=== PATIENT | male | born 1975 | race Caucasian/White ===

== ENCOUNTER 2017-05-02 12:44 | Emergency (ER) | payer BC ==
[2017-05-02 13:17] VITALS: BP 122/81; PULSE 67; RESP 14; TEMP 97.7
--- NOTE | 2017-05-02 13:36 | ED ---
General Adult HPI - General Chief complaint: Extremity Injury, Lower Stated complaint: Right Ankle Injury Time Seen by Provider: 05/02/17 13:20 Source: patient, RN notes reviewed Mode of arrival: ambulatory Limitations: no limitations - History of Present Illness Initial comments: 41-year-old male presents to the emergency department with a chief complaint of right ankle pain. Patient states yesterday he was doing yard work and he stepped into a hole and rolled his ankle. Patient states stenting, and he noticed bruising and swelling to the ankle today and pain with movement of the ankle so he was concerned. Patient states he is able to ambulate on the ankle just hurts to do range of motion. Patient denies any right knee pain. Patient has any fall patient states the pain is moderate. Patient states that he also has had a chronic cough for about a month now. He has been treated for bronchitis. He states he does not have any phlegm production he does not feel short of breath. He states he does have ALLERGIES and he thought maybe was that is wondering if there is anything else that could be wrong with him regarding to the cough. Patient states is not currently having any other symptoms.Patient denies any recent fever, chills, shortness of breath, chest pain, back pain, abdominal pain, nausea vomiting, numbness or tingling, dysuria or hematuria, constipation or diarrhea, headaches or visual changes, or any other current symptoms. - Related Data Home Medications Medication Instructions Recorded Confirmed No Known Home Medications [No 01/04/16 01/04/16 Known Home Medications] Allergies Allergy/AdvReac Type Severity Reaction Status Date / Time sulfamethoxazole Allergy Unknown Verified 05/02/17 13:17 [From Bactrim] trimethoprim [From Bactrim] Allergy Unknown Verified 05/02/17 13:17 Penicillins AdvReac Unknown STATES Verified 05/02/17 13:17 PENICILLINS DO NOT WORK FOR HIM. Review of Systems ROS Statement: Those systems with pertinent positive or pertinent negative responses have been documented in the HPI. ROS Other: All systems not noted in ROS Statement are negative. 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 History of Any Multi-Drug Resistant Organisms: None Reported Past Surgical History: Orthopedic Surgery Additional Past Surgical History / Comment(s): ARTHROSCOPY RIGHT KNEE, SINUS SURGERY X3. Past Anesthesia/Blood Transfusion Reactions: No Reported Reaction Past Psychological History: No Psychological Hx Reported Smoking Status: Light tobacco smoker Past Alcohol Use History: Occasional Past Drug Use History: None Reported - Past Family History Father Family Medical History: Cancer Additional Family Medical History / Comment(s): BRAIN & LUNG CA General Exam Limitations: no limitations General appearance: alert, in no apparent distress ENT exam: Present: normal exam, mucous membranes moist Neck exam: Present: normal inspection. Absent: tenderness, meningismus, lymphadenopathy Respiratory exam: Present: normal lung sounds bilaterally. Absent: respiratory distress, wheezes, rales, rhonchi, stridor Cardiovascular Exam: Present: regular rate, normal rhythm, normal heart sounds. Absent: systolic murmur, diastolic murmur, rubs, gallop, clicks Right Knee exam: Present: normal inspection, full ROM. Absent: tenderness, swelling Lower Leg exam: Present: normal inspection, full ROM. Absent: tenderness, swelling Ankle exam: Present: full ROM, tenderness (Medial and lateral malleolus), swelling (Diffusely), ecchymosis (Bilateral aspect of ankle). Absent: abrasion , laceration, erythema Foot/Toe exam: Present: normal inspection, full ROM, ecchymosis (Along the sides of the foot). Absent: tenderness, swelling Neurovascular tendon exam: Present: no vascular compromise Neurological exam: Present: alert, oriented X3 Psychiatric exam: Present: normal affect, normal mood Skin exam: Present: warm, dry, intact, normal color. Absent: rash Course Vital Signs 05/02/17 13:14 Temperature 97.7 F Pulse Rate 67 Respiratory 14 Rate Blood Pressure 122/81 O2 Sat by Pulse 97 Oximetry Procedures - Orthopedic Splinting/Casting Injury #1 Side: right Lower Extremity Injury Location: ankle Lower Extremity Immobilizer: Matt wrap Medical Decision Making - Medical Decision Making 41-year-old male presents emergency Department chief complaint of right ankle pain and chronic cough. Lung exam is normal as well as vitals. Chest x-ray does not show any acute process. Patient also went under an x-ray of the right ankle. This time x-rays reviewed and did not show any acute processes. We discussed patient most likely is right ankle sprain. We discussed care follow- up and return parameters all questions. Patient stated he understood and is very plan. This time he will be discharged home. - Radiology Data Radiology results: report reviewed, image reviewed Disposition Clinical Impression: Cough, Seasonal allergies, Right ankle sprain Disposition: HOME SELF-CARE Condition: Stable Instructions: Ankle Sprain (ED) Additional Instructions: Please use medication as discussed. Please follow up with family doctor if symptoms have not improved over the next two days. Please return to the emergency room if your symptoms increase or worsen or for any other concerns. Referrals: Papito Eid MD [Primary Care Provider] - 1-2 days Time of Disposition: 13:56
--- NOTE | 2017-05-02 13:51 | XR ---
EXAMINATION TYPE: XR chest 2V DATE OF EXAM: 05/02/2017 COMPARISON: 09/05/2010 HISTORY: Cough and recent bronchitis TECHNIQUE: Frontal and lateral views of the chest are obtained. FINDINGS: There is no focal air space opacity, pleural effusion, or pneumothorax seen. The cardiac silhouette size is within normal limits. The osseous structures are intact. IMPRESSION: No acute cardiopulmonary process.
--- NOTE | 2017-05-02 13:53 | XR ---
EXAMINATION TYPE: XR ankle complete RT DATE OF EXAM: 05/02/2017 CLINICAL HISTORY: Right ankle pain after a fall TECHNIQUE: Frontal, lateral and oblique images of the right ankle are obtained. COMPARISON: None. FINDINGS: There is no acute fracture/dislocation evident in the right ankle. The ankle mortise appe ars within normal limits. There is a small tibiotalar joint effusion and mild soft tissue swelling ov er the lateral malleolus. The overlying soft tissue appears unremarkable. IMPRESSION: There is no acute fracture or dislocation in the right ankle. Small tibiotalar joint eff usion and mild soft tissue swelling over the lateral malleolus.
== END 2017-05-02 14:00 | disposition home or self-care (01) ==
LOC: EC 12:44
DX: S93.401A Sprain of unspecified ligament of right ankle, initial encounter (principal); J30.2 Other seasonal allergic rhinitis; R05 Cough; F17.200 Nicotine dependence, unspecified, uncomplicated; Z88.0 Allergy status to penicillin; Z88.2 Allergy status to sulfonamides; X50.1XXA Overexertion from prolonged static or awkward postures, initial encounter; Y92.009 Unspecified place in unspecified non-institutional (private) residence as the place of occurrence of the external cause
CPT/HCPCS: 71020; 99283

== ENCOUNTER 2018-11-05 12:14 | Emergency (ER) | payer BC ==
[2018-11-05 12:22] VITALS: TEMP 98.8
[2018-11-05] MEDS ORDERED: SODIUM CHLORIDE 0.9% 500 ML 500 ML IV ONE (12:59)
--- NOTE | 2018-11-05 13:09 | ED ---
General Adult HPI - General Chief complaint: Syncope Stated complaint: SYNCOPY Time Seen by Provider: 11/05/18 12:20 Source: patient, RN notes reviewed Mode of arrival: wheelchair Limitations: no limitations - History of Present Illness Initial comments: This is a 43-year-old male who presents emergency department after having had a near-syncopal episode. Patient states she got up from a couch Quickly and then stretched and yawned really hard and he became very lightheaded and slowly went to the ground. Patient states there was no injury while going to the ground. Patient states he was on the ground for about a minute and then he was back to his baseline. Patient states he has no symptoms currently. Patient denies any numbness or weakness. Patient denies any headache. Patient denies any chest pain difficult breathing shortness of breath. Patient denies any abdominal pain. Patient denies any nausea vomiting diarrhea recently. Patient denies any dysuria hematuria urinary frequency. - Related Data Home Medications Medication Instructions Recorded Confirmed Cetirizine HCl [Zyrtec] 10 mg PO HS 11/05/18 11/05/18 Fluticasone/Salmeterol [Advair 1 puff INHALATION RT-DAILY PRN 11/05/18 11/05/18 500-50 Diskus] diphenhydrAMINE [Benadryl] 50 mg PO DAILY 11/05/18 11/05/18 Allergies Allergy/AdvReac Type Severity Reaction Status Date / Time sulfamethoxazole Allergy Unknown Verified 11/05/18 13:08 [From Bactrim] trimethoprim [From Bactrim] Allergy Unknown Verified 11/05/18 13:08 Penicillins AdvReac Unknown STATES Verified 11/05/18 13:08 PENICILLINS DO NOT WORK FOR HIM. Review of Systems ROS Statement: Those systems with pertinent positive or pertinent negative responses have been documented in the HPI. ROS Other: All systems not noted in ROS Statement are negative. 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 History of Any Multi-Drug Resistant Organisms: None Reported Past Surgical History: Orthopedic Surgery Additional Past Surgical History / Comment(s): ARTHROSCOPY RIGHT KNEE, SINUS SURGERY X3. Past Anesthesia/Blood Transfusion Reactions: No Reported Reaction Past Psychological History: No Psychological Hx Reported Smoking Status: Light tobacco smoker Past Alcohol Use History: Occasional Past Drug Use History: None Reported - Past Family History Father Family Medical History: Cancer Additional Family Medical History / Comment(s): BRAIN & LUNG CA General Exam - General Exam Comments Initial Comments: GENERAL: Patient is well-developed and well-nourished. Patient is nontoxic and well- hydrated and is in mild distress. ENT: Neck is soft and supple. No significant lymphadenopathy is noted. Oropharynx is clear. Moist mucous membranes. Neck has full range of motion without eliciting any pain. EYES: The sclera were anicteric and conjunctiva were pink and moist. Extraocular movements were intact and pupils were equal round and reactive to light. Eyelids were unremarkable. PULMONARY: Unlabored respirations. Good breath sounds bilaterally. No audible rales rhonchi or wheezing was noted. CARDIOVASCULAR: There is a regular rate and rhythm without any murmurs gallops or rubs. ABDOMEN: Soft and nontender with normal bowel sounds. SKIN: Skin is clear with no lesions or rashes and otherwise unremarkable. NEUROLOGIC: Patient is alert and oriented x3. Cranial nerves II through XII are grossly intact. Motor and sensory are also intact. Normal speech, volume and content. Symmetrical smile. MUSCULOSKELETAL: Normal extremities with adequate strength and full range of motion. No lower extremity swelling or edema. No calf tenderness. LYMPHATICS: No significant lymphadenopathy is noted PSYCHIATRIC: Normal psychiatric evaluation. Limitations: no limitations Course Vital Signs 11/05/18 11/05/18 12:19 14:02 Temperature 98.8 F Pulse Rate 93 Pulse Rate [ 99 Right Sitting Pulse Oximetery ] Pulse Rate [ 104 H Right Standing Pulse Oximetery ] Pulse Rate [ 90 Right Supine Pulse Oximetery ] Respiratory 18 Rate Blood Pressure 137/82 Blood Pressure 133/95 [Right Arm Sitting] Blood Pressure 130/93 [Right Arm Standing] Blood Pressure 124/82 [Right Arm Supine] O2 Sat by Pulse 99 Oximetry Medical Decision Making - Medical Decision Making EKG shows a normal sinus rhythm at 84 bpm DE interval is on a 64 QRS is 72 QT interval 336 QTC is 397. Patient's EKG shows no ST segment elevation or depression or T wave abnormalities are noted. Patient orthostatics were normal. Patient's chest x-ray is normal. I spoke with the patient about him having a vasovagal near syncopal episode. He indicated to me that the feeling he got today was the same feeling is gotten in the past when he was jumped off a couch too quickly and the only difference was he stretched really hard and yawned and that seemed to make him more dizzy today. Patient states he has had no symptoms since the event resolved after 1 minute. - Lab Data Result diagrams: 11/05/18 13:45 11/05/18 13:45 Lab Results 11/05/18 11/05/18 11/05/18 Range/Units 13:45 13:45 13:45 WBC 11.0 H (3.8-10.6) k/uL RBC 5.09 (4.30-5.90) m/uL Hgb 16.6 (13.0-17.5) gm/dL Hct 49.8 (39.0-53.0) % MCV 97.9 (80.0-100.0) fL MCH 32.7 (25.0-35.0) pg MCHC 33.4 (31.0-37.0) g/dL RDW 12.0 (11.5-15.5) % Plt Count 230 (150-450) k/uL Neutrophils % 77 % Lymphocytes % 17 % Monocytes % 5 % Eosinophils % 1 % Basophils % 0 % Neutrophils # 8.5 H (1.3-7.7) k/uL Lymphocytes # 1.8 (1.0-4.8) k/uL Monocytes # 0.5 (0-1.0) k/uL Eosinophils # 0.1 (0-0.7) k/uL Basophils # 0.0 (0-0.2) k/uL PT (9.0-12.0) sec INR (<1.2) APTT (22.0-30.0) sec Sodium 140 (137-145) mmol/L Potassium 4.6 (3.5-5.1) mmol/L Chloride 107 (98-107) mmol/L Carbon Dioxide 21 L (22-30) mmol/L Anion Gap 12 mmol/L BUN 23 H (9-20) mg/dL Creatinine 0.91 (0.66-1.25) mg/dL Est GFR (CKD-EPI)AfAm >90 (>60 ml/min/1.73 sqM) Est GFR (CKD-EPI)NonAf >90 (>60 ml/min/1.73 sqM) Glucose 77 (74-99) mg/dL Calcium 10.1 (8.4-10.2) mg/dL Magnesium 2.1 (1.6-2.3) mg/dL Total Bilirubin 1.0 (0.2-1.3) mg/dL AST 32 (17-59) U/L ALT 23 (21-72) U/L Alkaline Phosphatase 79 (38-126) U/L Total Creatine Kinase 122 (55-170) U/L CK-MB (CK-2) 1.6 (0.0-2.4) ng/mL CK-MB (CK-2) Rel Index 1.3 Troponin I <0.012 (0.000-0.034) ng/mL Total Protein 8.2 (6.3-8.2) g/dL Albumin 5.0 (3.5-5.0) g/dL 11/05/18 Range/Units 13:45 WBC (3.8-10.6) k/uL RBC (4.30-5.90) m/uL Hgb (13.0-17.5) gm/dL Hct (39.0-53.0) % MCV (80.0-100.0) fL MCH (25.0-35.0) pg MCHC (31.0-37.0) g/dL RDW (11.5-15.5) % Plt Count (150-450) k/uL Neutrophils % % Lymphocytes % % Monocytes % % Eosinophils % % Basophils % % Neutrophils # (1.3-7.7) k/uL Lymphocytes # (1.0-4.8) k/uL Monocytes # (0-1.0) k/uL Eosinophils # (0-0.7) k/uL Basophils # (0-0.2) k/uL PT 10.3 (9.0-12.0) sec INR 1.0 (<1.2) APTT 26.8 (22.0-30.0) sec Sodium (137-145) mmol/L Potassium (3.5-5.1) mmol/L Chloride (98-107) mmol/L Carbon Dioxide (22-30) mmol/L Anion Gap mmol/L BUN (9-20) mg/dL Creatinine (0.66-1.25) mg/dL Est GFR (CKD-EPI)AfAm (>60 ml/min/1.73 sqM) Est GFR (CKD-EPI)NonAf (>60 ml/min/1.73 sqM) Glucose (74-99) mg/dL Calcium (8.4-10.2) mg/dL Magnesium (1.6-2.3) mg/dL Total Bilirubin (0.2-1.3) mg/dL AST (17-59) U/L ALT (21-72) U/L Alkaline Phosphatase (38-126) U/L Total Creatine Kinase (55-170) U/L CK-MB (CK-2) (0.0-2.4) ng/mL CK-MB (CK-2) Rel Index Troponin I (0.000-0.034) ng/mL Total Protein (6.3-8.2) g/dL Albumin (3.5-5.0) g/dL Disposition Clinical Impression: Vasovagal near syncope Disposition: HOME SELF-CARE Condition: Good Instructions (If sedation given, give patient instructions): Hypotension (ED), Near Syncope (ED) Is patient prescribed a controlled substance at d/c from ED?: No Referrals: Papito Eid MD [Primary Care Provider] - 1-2 days Time of Disposition: 14:50
[2018-11-05 14:02] LABS: Basophils % (A) 0 %; Eosinophils # (A) 0.1 k/uL (0-0.7); Eosinophils % (A) 1 %; HCT 49.8 % (39.0-53.0); HGB 16.6 gm/dL (13.0-17.5); Lymphocytes # (A) 1.8 k/uL (1.0-4.8); Lymphocytes % (A) 17 %; MCH 32.7 pg (25.0-35.0); MCHC 33.4 g/dL (31.0-37.0); MCV 97.9 fL (80.0-100.0); Monocytes # (A) 0.5 k/uL (0-1.0); Monocytes % (A) 5 %; Neutrophils # (A) 8.5 k/uL (1.3-7.7); Neutrophils % (A) 77 %; Platelet Count 230 k/uL (150-450); RBC 5.09 m/uL (4.30-5.90)
--- NOTE | 2018-11-05 14:04 | XR ---
EXAMINATION TYPE: XR chest 2V DATE OF EXAM: 11/05/2018 COMPARISON: 05/02/2018 INDICATION: Chest pain, syncope TECHNIQUE: Frontal and lateral views of the chest are obtained. FINDINGS: The heart size is normal. The pulmonary vasculature is normal. The lungs are clear. IMPRESSION: 1. No acute pulmonary process.
[2018-11-05 14:12] LABS: Partial Thromboplastin Time 26.8 sec (22.0-30.0); Prothrombin Time 10.3 sec (9.0-12.0)
[2018-11-05 14:17] LABS: ALT 23 U/L (21-72); AST 32 U/L (17-59); Alkaline Phosphatase 79 U/L (38-126); Anion Gap 12 mmol/L; Blood Urea Nitrogen 23 mg/dL (9-20); Calcium 10.1 mg/dL (8.4-10.2); Carbon Dioxide 21 mmol/L (22-30); Chloride 107 mmol/L (98-107); Glucose 77 mg/dL (74-99); Magnesium 2.1 mg/dL (1.6-2.3); Potassium 4.6 mmol/L (3.5-5.1); Sodium 140 mmol/L (137-145); Total Protein 8.2 g/dL (6.3-8.2)
[2018-11-05 14:22] LABS: Creatine Kinase 122 U/L (55-170)
[2018-11-05 14:35] LABS: Creatine Kinase MB 1.6 ng/mL (0.0-2.4); Troponin I <0.012 ng/mL (0.000-0.034)
[2018-11-05 15:05] VITALS: BP 126/79; PULSE 92; RESP 16
== END 2018-11-05 15:10 | disposition home or self-care (01) ==
LOC: EC 12:14
DX: R55 Syncope and collapse (principal); R42 Dizziness and giddiness; J45.909 Unspecified asthma, uncomplicated; F17.200 Nicotine dependence, unspecified, uncomplicated; Z79.899 Other long term (current) drug therapy; Z88.2 Allergy status to sulfonamides; Z88.0 Allergy status to penicillin
CPT/HCPCS: 36415; 71046; 80053; 82550; 82553; 83735; 84484; 85025; 85610; 85730; 93005; 99284

== ENCOUNTER 2019-08-21 14:00 | Emergency (ER) | payer BC ==
[2019-08-21 14:31] VITALS: TEMP 98.5
[2019-08-21] MEDS ORDERED: IPRATROPIUM-ALBUTEROL 3 ML NEB INHALATION STA (14:40)
[2019-08-21] MEDS ORDERED: methylPREDNISolone SOD SUCCI 125 MG/2 ML VIAL IV STA (14:40)
[2019-08-21] MEDS ORDERED: SODIUM CHLORIDE 0.9% 500 ML 500 ML IV STA (14:40)
--- NOTE | 2019-08-21 14:49 | ED ---
Abdominal Pain HPI - General Chief Complaint: Abdominal Pain Stated Complaint: R Side pain Time Seen by Provider: 08/21/19 14:33 Source: patient, RN notes reviewed Mode of arrival: ambulatory Limitations: no limitations - History of Present Illness Initial Comments: 44-year-old male presents emergency department tingling right sided rib pain. Patient states that he is coughing so at this morning that he felt a pop in his ribs states she's had severe pain is right-sided. It is worse with movement. He does feel slightly short of breath. He states that his been fighting bronchitis. Patient has been using his [employer] machine at home. Patient rep orts no fevers or chills no some/chest pain or left-sided chest pain. Patient has no complaints of abdominal pain including nausea vomiting diarrhea constipation no dysuria no hematuria. - Related Data Home Medications Medication Instructions Recorded Confirmed Fluticasone/Salmeterol [Advair 1 puff INHALATION RT-DAILY PRN 11/05/18 08/21/19 500-50 Diskus] diphenhydrAMINE [Benadryl] 50 mg PO DAILY 11/05/18 08/21/19 Magnesium 200 mg PO DAILY 08/21/19 08/21/19 Multivitamins, Thera [Multivitamin 1 tab PO DAILY 08/21/19 08/21/19 (formulary)] Previous Rx's Medication Instructions Recorded Azithromycin [Zithromax Z-pack] 0 mg PO DIRECTED #1 pack 08/21/19 Ibuprofen [Motrin] 600 mg PO Q8HR PRN #30 tab 08/21/19 predniSONE 50 mg PO DAILY #5 tab 08/21/19 Allergies Allergy/AdvReac Type Severity Reaction Status Date / Time sulfamethoxazole Allergy Unknown Verified 08/21/19 15:32 [From Bactrim] trimethoprim [From Bactrim] Allergy Unknown Verified 08/21/19 15:32 Penicillins AdvReac Unknown STATES Verified 08/21/19 15:32 [employer]ENICILLINS DO NOT WORK FOR HIM. Review of Systems ROS Statement: Those systems with pertinent positive or pertinent negative responses have been documented in the HPI. ROS Other: All systems not noted in ROS Statement are negative. 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 History of Any Multi-Drug Resistant Organisms: None Reported Past Surgical History: Orthopedic Surgery Additional Past Surgical History / Comment(s): ARTHROSCOPY RIGHT KNEE, SINUS SURGERY X3. Past Anesthesia/Blood Transfusion Reactions: No Reported Reaction Past Psychological History: No Psychological Hx Reported Smoking Status: Light tobacco smoker Past Alcohol Use History: Occasional Past Drug Use History: None Reported - Past Family History Father Family Medical History: Cancer Additional Family Medical History / Comment(s): BRAIN & LUNG CA General Exam Limitations: no limitations General appearance: alert, in no apparent distress Head exam: Present: atraumatic, normocephalic, normal inspection Eye exam: Present: normal appearance, PERRL, EOMI. Absent: scleral icterus, conjunctival injection, periorbital swelling Neck exam: Present: normal inspection, full ROM. Absent: tenderness, meningismus, lymphadenopathy Respiratory exam: Present: wheezes, rhonchi, chest wall tenderness (Moderately tender right-sided). Absent: normal lung sounds bilaterally, respiratory distress, rales, stridor Cardiovascular Exam: Present: regular rate, normal rhythm, normal heart sounds. Absent: systolic murmur, diastolic murmur, rubs, gallop, clicks GI/Abdominal exam: Present: soft, normal bowel sounds. Absent: distended, tenderness, guarding, rebound, rigid Back exam: Absent: CVA tenderness (R), CVA tenderness (L) Neurological exam: Present: alert, oriented X3 Skin exam: Present: warm, dry, intact, normal color. Absent: rash Course Vital Signs 08/21/19 08/21/19 08/21/19 14:29 15:15 15:34 Temperature 98.5 F Pulse Rate 99 98 98 Respiratory 20 Rate Blood Pressure 112/72 O2 Sat by Pulse 96 Oximetry 08/21/19 16:06 Temperature Pulse Rate 98 Respiratory 18 Rate Blood Pressure 128/79 O2 Sat by Pulse 99 Oximetry Medical Decision Making - Medical Decision Making Chest x-ray shows evidence of acute bronchitis, otherwise no pneumothorax or rib fracture. Patient's lab work urinalysis is unremarkable. I do feel this is related to costochondritis, muscular skeletal strain. Return parameters were discussed. - Lab Data Result diagrams: 08/21/19 15:05 08/21/19 15:05 Lab Results 08/21/19 08/21/19 08/21/19 Range/Units 15:05 15:05 15:10 WBC 7.1 (3.8-10.6) k/uL RBC 4.41 (4.30-5.90) m/uL Hgb 14.9 (13.0-17.5) gm/dL Hct 43.8 (39.0-53.0) % MCV 99.3 (80.0-100.0) fL MCH 33.7 (25.0-35.0) pg MCHC 34.0 (31.0-37.0) g/dL RDW 11.9 (11.5-15.5) % Plt Count 220 (150-450) k/uL Neutrophils % 80 % Lymphocytes % 10 % Monocytes % 5 % Eosinophils % 3 % Basophils % 2 % Neutrophils # 5.7 (1.3-7.7) k/uL Lymphocytes # 0.7 L (1.0-4.8) k/uL Monocytes # 0.4 (0-1.0) k/uL Eosinophils # 0.2 (0-0.7) k/uL Basophils # 0.1 (0-0.2) k/uL Sodium 137 (137-145) mmol/L Potassium 4.0 (3.5-5.1) mmol/L Chloride 105 (98-107) mmol/L Carbon Dioxide 24 (22-30) mmol/L Anion Gap 8 mmol/L BUN 18 (9-20) mg/dL Creatinine 1.05 (0.66-1.25) mg/dL Est GFR (CKD-EPI)AfAm >90 (>60 ml/min/1.73 sqM) Est GFR (CKD-EPI)NonAf 86 (>60 ml/min/1.73 sqM) Glucose 104 H (74-99) mg/dL Calcium 8.9 (8.4-10.2) mg/dL Total Bilirubin 0.9 (0.2-1.3) mg/dL AST 29 (17-59) U/L ALT 23 (21-72) U/L Alkaline Phosphatase 65 (38-126) U/L Total Protein 6.6 (6.3-8.2) g/dL Albumin 4.1 (3.5-5.0) g/dL Amylase 59 (30-110) U/L Lipase 151 (23-300) U/L Urine Color Yellow Urine Appearance Clear (Clear) Urine pH 5.5 (5.0-8.0) Ur Specific Melber 1.031 (1.001-1.035) Urine Protein Negative (Negative) Urine Glucose (UA) Negative (Negative) Urine Ketones Negative (Negative) Urine Blood Negative (Negative) Urine Nitrite Negative (Negative) Urine Bilirubin Negative (Negative) Urine Urobilinogen <2.0 (<2.0) mg/dL Ur Leukocyte Esterase Negative (Negative) Disposition Clinical Impression: Acute bronchitis, Rib pain on right side, Muscle strain of anterior chest wall Disposition: HOME SELF-CARE Condition: Stable Instructions (If sedation given, give patient instructions): Acute Bronchitis (ED) Additional Instructions: Please return to the Emergency Department if symptoms worsen or any other concerns. Prescriptions: Ibuprofen [Motrin] 600 mg PO Q8HR PRN #30 tab PRN Reason: Pain predniSONE 50 mg PO DAILY #5 tab Azithromycin [Zithromax Z-pack] 0 mg PO DIRECTED #1 pack Is patient prescribed a controlled substance at d/c from ED?: No Referrals: Papito Eid MD [Primary Care Provider] - 1-2 days Time of Disposition: 16:29
[2019-08-21 15:18] VITALS: PULSE 98
[2019-08-21 15:23] LABS: ALT 23 U/L (21-72); AST 29 U/L (17-59); African American GFR (CKD) >90 (>60 ml/min/1.73 sqM); Albumin 4.1 g/dL (3.5-5.0); Alkaline Phosphatase 65 U/L (38-126); Amylase 59 U/L (30-110); Anion Gap 8 mmol/L; Blood Urea Nitrogen 18 mg/dL (9-20); Calcium 8.9 mg/dL (8.4-10.2); Carbon Dioxide 24 mmol/L (22-30); Chloride 105 mmol/L (98-107); Glucose 104 mg/dL (74-99); Non-African American GFR(CKD) 86 (>60 ml/min/1.73 sqM); Sodium 137 mmol/L (137-145); Total Bilirubin 0.9 mg/dL (0.2-1.3); Total Protein 6.6 g/dL (6.3-8.2)
[2019-08-21 15:30] LABS: Basophils # (A) 0.1 k/uL (0-0.2); Basophils % (A) 2 %; Eosinophils # (A) 0.2 k/uL (0-0.7); Eosinophils % (A) 3 %; HCT 43.8 % (39.0-53.0); HGB 14.9 gm/dL (13.0-17.5); Lymphocytes # (A) 0.7 k/uL (1.0-4.8); Lymphocytes % (A) 10 %; MCH 33.7 pg (25.0-35.0); MCV 99.3 fL (80.0-100.0); Mean Platelet Volume 5.9; Monocytes # (A) 0.4 k/uL (0-1.0); Monocytes % (A) 5 %; Neutrophils # (A) 5.7 k/uL (1.3-7.7); Neutrophils % (A) 80 %; Platelet Count 220 k/uL (150-450); RBC 4.41 m/uL (4.30-5.90); RDW 11.9 % (11.5-15.5); WBC 7.1 k/uL (3.8-10.6)
[2019-08-21 16:07] VITALS: BP 128/79; RESP 18
--- NOTE | 2019-08-21 16:10 | XR ---
EXAMINATION TYPE: PA chest and right rib series DATE OF EXAM: 08/21/2019 COMPARISON: 11/05/2018 HISTORY: 44-year-old male with shortness of breath and right upper quadrant pain from coughing TECHNIQUE: 5 views FINDINGS: Chest: The cardiomediastinal silhouette, aorta, and pulmonary vasculature are within normal limits. M ild interstitial prominence. No consolidation or pleural effusion. Right RIBS: No displaced right rib fracture. Incidental numerous punctate calcifications in the mid abdomen. IMPRESSION: 1. Chest: Mild interstitial prominence could reflect bronchitis or asthma. No focal infiltrate. 2. Right ribs: No displaced right rib fracture. 3. Incidental: Numerous punctate calcifications in the mid abdomen probably localize to the pancreas. Correlate for suspected chronic pancreatitis.
[2019-08-21 16:24] LABS: Appearance,Urine Clear (Clear); Bilirubin,Urine Negative (Negative); Blood,Urine Negative (Negative); Color,Urine Yellow; Glucose,Urine (UA) Negative (Negative); Ketones,Urine Negative (Negative); Leukocyte Esterase,Urine Negative (Negative); Nitrite,Urine Negative (Negative); PH, Urine 5.5 (5.0-8.0); Protein,Urine Negative (Negative); Specific Gravity,Urine 1.031 (1.001-1.035); Urobilinogen,Urine <2.0 mg/dL (<2.0)
== END 2019-08-21 16:43 | disposition home or self-care (01) ==
LOC: EC 14:00
DX: J20.9 Acute bronchitis, unspecified (principal); S29.011A Strain of muscle and tendon of front wall of thorax, initial encounter; J45.909 Unspecified asthma, uncomplicated; F17.200 Nicotine dependence, unspecified, uncomplicated; Z88.0 Allergy status to penicillin; Z88.1 Allergy status to other antibiotic agents; Z88.2 Allergy status to sulfonamides; X50.9XXA Other and unspecified overexertion or strenuous movements or postures, initial encounter
CPT/HCPCS: 36415; 94640; 80053; 82150; 83690; 85025; 81003; 71101; 99284; 96374; 96361; J2930

== ENCOUNTER → 2020-05-06 | Outpatient (CLI) | payer BC ==
--- NOTE | 2020-05-06 12:58 | CT ---
EXAMINATION TYPE: CT sinus wo con DATE OF EXAM: 05/06/2020 COMPARISON: Prior sinus CT January 13, 2015 HISTORY: Chronic sinusitis per order. Headache with vision changes and sinus pain for 5 months [address] in[address]. [address] DLP: 717.2 mGycm. Automated Exposure Control for Dose Reduction was Utilized. TECHNIQUE: CT scan of the sinuses is performed without contrast, axial images are obtained, coronal r eformatted images are also reviewed. FINDINGS: Fairly severe lobulated mucosal thickening in the left frontal sinus with some smaller degr ee of dependent bubbly fluid on current study. More moderate lobulated mucosal thickening in the righ t maxillary sinus. Near complete recurrent opacification of bilateral ethmoid sinuses is now present. Mild mucosal thickening inferior left sphenoid sinus with more moderate lobulated mucosal thickening superior left sphenoid sinus. Some patchy dependent opacity noted. Recurrent completely opacified rig ht sphenoid sinus. Moderate mucosal thickening with suspected some dependent fluid in the left frontal sinus. Mild eccen tric mucosal thickening inferior medial right frontal sinus with some inferior dependent fluid on cur rent study. The surgically treated ostiomeatal complex is occluded bilaterally on the coronal images. Nasal septu m remains slightly deviated to left of midline. Visualized portion of mastoid air cells show no abnormal opacification. The globes are intact bilate rally. IMPRESSION: Recurrent acute on chronic paranasal pansinusitis as detailed above despite prior surgica l intervention.
== END | disposition home or self-care (01) ==
LOC: RADCTMAIN 12:27
PROVIDERS: ATTEND Otolaryngology
DX: J32.4 Chronic pansinusitis (principal); Z88.0 Allergy status to penicillin; Z88.1 Allergy status to other antibiotic agents
CPT/HCPCS: 70486

== ENCOUNTER 2021-06-01 02:53 | Emergency (ER) | payer BC ==
[2021-06-01] MEDS ORDERED: SODIUM CHLORIDE 0.9% 1,000 ML IV STA (02:57)
--- NOTE | 2021-06-01 02:57 | ED ---
Syncope HPI - General Stated Complaint: AMS Time Seen by Provider: 06/01/21 02:56 Source: RN notes reviewed, old records reviewed Limitations: altered mental status - History of Present Illness Initial Comments: This is a 45-year-old male was found to be significantly unresponsive or historian secondary to likely what appears to be alcohol intoxication. Patient is unable to provide history at this time history obtained from EMS and patient's prior charting MD Complaint: loss of consciousness, almost passed out -: hour(s) Prodromal Symptoms: none Witnessed: no Injuries Sustained Associated with Event: None Current Symptoms: lightheaded, weakness History: previous syncopal episode Context: at rest, alcohol use, illicit drug use Treatments Prior to Arrival: none - Related Data Home Medications Medication Instructions Recorded Confirmed Fluticasone/Salmeterol [Advair 1 puff INHALATION RT-DAILY PRN 11/05/18 08/21/19 500-50 Diskus] diphenhydrAMINE [Benadryl] 50 mg PO DAILY 11/05/18 08/21/19 Magnesium 200 mg PO DAILY 08/21/19 08/21/19 Multivitamins, Thera [Multivitamin 1 tab PO DAILY 08/21/19 08/21/19 (formulary)] Previous Rx's Medication Instructions Recorded Azithromycin [Zithromax Z-pack (6 0 mg PO DIRECTED #1 pack 08/21/19 tabs)] Ibuprofen [Motrin] 600 mg PO Q8HR PRN #30 tab 08/21/19 predniSONE 50 mg PO DAILY #5 tab 08/21/19 Allergies Allergy/AdvReac Type Severity Reaction Status Date / Time sulfamethoxazole Allergy Unknown Verified 06/01/21 03:03 [From Bactrim] trimethoprim [From Bactrim] Allergy Unknown Verified 06/01/21 03:03 Penicillins AdvReac Unknown STATES Verified 06/01/21 03:03 PENICILLINS DO NOT WORK FOR HIM. Review of Systems ROS Statement: Those systems with pertinent positive or pertinent negative responses have been documented in the HPI. ROS Other: All systems not noted in ROS Statement are negative. 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 History of Any Multi-Drug Resistant Organisms: None Reported Past Surgical History: Orthopedic Surgery Additional Past Surgical History / Comment(s): ARTHROSCOPY RIGHT KNEE, SINUS SURGERY X3. Past Anesthesia/Blood Transfusion Reactions: No Reported Reaction Past Psychological History: No Psychological Hx Reported Past Alcohol Use History: Occasional Past Drug Use History: None Reported - Past Family History Father Family Medical History: Cancer Additional Family Medical History / Comment(s): BRAIN & LUNG CA General Exam General appearance: alert, in no apparent distress, anxious Head exam: Present: atraumatic, normocephalic, normal inspection Eye exam: Present: normal appearance, PERRL, EOMI. Absent: scleral icterus, conjunctival injection, periorbital swelling ENT exam: Present: normal exam, mucous membranes moist Neck exam: Present: normal inspection. Absent: tenderness, meningismus, lymphadenopathy Respiratory exam: Present: normal lung sounds bilaterally. Absent: respiratory distress, wheezes, rales, rhonchi, stridor Cardiovascular Exam: Present: regular rate, normal rhythm, normal heart sounds. Absent: systolic murmur, diastolic murmur, rubs, gallop, clicks GI/Abdominal exam: Present: soft, normal bowel sounds. Absent: distended, tenderness, guarding, rebound, rigid Extremities exam: Present: normal inspection, full ROM, normal capillary refill. Absent: tenderness, pedal edema, joint swelling, calf tenderness Back exam: Present: normal inspection Neurological exam: Present: alert, oriented X3, CN II-XII intact Psychiatric exam: Present: normal affect, normal mood Skin exam: Present: warm, dry, intact, normal color. Absent: rash Course Vital Signs 06/01/21 06/01/21 02:56 04:00 Temperature 97.2 F L Pulse Rate 97 89 Respiratory 18 18 Rate Blood Pressure 124/91 104/70 O2 Sat by Pulse 97 Oximetry - Reevaluation(s) Reevaluation #1: 06/01/21 Medical record is reviewed Patient symptoms are improved here in the emergency department Patient is informed results and questions answered Patient is in no acute distress EKG Findings - EKG Comments: EKG Findings:: EKG is sinus 76 MN 196 QRS 76 QTC 439 Medical Decision Making - Medical Decision Making 45 male with alcohol intoxication, family not abuse the patient was significantly intoxicated here in the emergency department. Patient has had imaging as well as other testing that has been negative and he can be discharged home to the care of his - Lab Data Result diagrams: 06/01/21 03:06 06/01/21 03:06 Lab Results 06/01/21 06/01/21 06/01/21 Range/Units 03:06 03:06 03:06 WBC 7.3 (3.8-10.6) k/uL RBC 4.31 (4.30-5.90) m/uL Hgb 14.8 (13.0-17.5) gm/dL Hct 44.0 (39.0-53.0) % MCV 102.2 H (80.0-100.0) fL MCH 34.3 (25.0-35.0) pg MCHC 33.5 (31.0-37.0) g/dL RDW 12.4 (11.5-15.5) % Plt Count 257 (150-450) k/uL MPV 7.1 Neutrophils % 48 % Lymphocytes % 33 % Monocytes % 4 % Eosinophils % 10 % Basophils % 1 % Neutrophils # 3.5 (1.3-7.7) k/uL Lymphocytes # 2.4 (1.0-4.8) k/uL Monocytes # 0.3 (0-1.0) k/uL Eosinophils # 0.7 (0-0.7) k/uL Basophils # 0.1 (0-0.2) k/uL Sodium 139 (137-145) mmol/L Potassium 4.0 (3.5-5.1) mmol/L Chloride 108 H (98-107) mmol/L Carbon Dioxide 21 L (22-30) mmol/L Anion Gap 10 mmol/L BUN 13 (9-20) mg/dL Creatinine 0.89 (0.66-1.25) mg/dL Est GFR (CKD-EPI)AfAm >90 (>60 ml/min/1.73 sqM) Est GFR (CKD-EPI)NonAf >90 (>60 ml/min/1.73 sqM) Glucose 137 H (74-99) mg/dL Calcium 9.0 (8.4-10.2) mg/dL Total Bilirubin 0.2 (0.2-1.3) mg/dL AST 38 (17-59) U/L ALT 28 (4-49) U/L Alkaline Phosphatase 82 (38-126) U/L Creatine Kinase 361 H (55-170) U/L Troponin I <0.012 (0.000-0.034) ng/mL Total Protein 6.9 (6.3-8.2) g/dL Albumin 4.2 (3.5-5.0) g/dL Lipase 115 (23-300) U/L Salicylates <1.0 mg/dL Acetaminophen <10.0 ug/mL Serum Alcohol 204 H* mg/dL - Radiology Data Radiology results: report reviewed (CT brain chest x-ray negative for acute disease), image reviewed Disposition Clinical Impression: Alcoholic intoxication Disposition: HOME SELF-CARE Condition: Good Instructions (If sedation given, give patient instructions): Alcohol Intoxication (ED) Is patient prescribed a controlled substance at d/c from ED?: No Referrals: None,Stated [Primary Care Provider] - 1-2 days
[2021-06-01 03:03] VITALS: RESP 18; TEMP 97.2
[2021-06-01 03:52] LABS: ALT 28 U/L (4-49); AST 38 U/L (17-59); Acetaminophen <10.0 ug/mL; African American GFR (CKD) >90 (>60 ml/min/1.73 sqM); Albumin 4.2 g/dL (3.5-5.0); Alkaline Phosphatase 82 U/L (38-126); Anion Gap 10 mmol/L; Blood Urea Nitrogen 13 mg/dL (9-20); Carbon Dioxide 21 mmol/L (22-30); Chloride 108 mmol/L (98-107); Creatine Kinase 361 U/L (55-170); Glucose 137 mg/dL (74-99); Lipase 115 U/L (23-300); Non-African American GFR(CKD) >90 (>60 ml/min/1.73 sqM); Salicylate <1.0 mg/dL; Sodium 139 mmol/L (137-145); Total Bilirubin 0.2 mg/dL (0.2-1.3); Total Protein 6.9 g/dL (6.3-8.2)
--- NOTE | 2021-06-01 03:52 | XR ---
EXAMINATION TYPE: XR chest 1V DATE OF EXAM: 06/01/2021 COMPARISON: 11/05/2018 HISTORY: Chest pain TECHNIQUE: FINDINGS: Heart and mediastinum are normal. Lungs are clear of infiltrate. There are chest leads. Cos tophrenic angles are clear. Bony thorax is intact. IMPRESSION: No active cardiopulmonary disease. Normal heart. No change.
[2021-06-01 03:56] LABS: Basophils # (A) 0.1 k/uL (0-0.2); Basophils % (A) 1 %; Eosinophils # (A) 0.7 k/uL (0-0.7); Eosinophils % (A) 10 %; HGB 14.8 gm/dL (13.0-17.5); Lymphocytes # (A) 2.4 k/uL (1.0-4.8); Lymphocytes % (A) 33 %; MCH 34.3 pg (25.0-35.0); MCHC 33.5 g/dL (31.0-37.0); MCV 102.2 fL (80.0-100.0); Mean Platelet Volume 7.1; Monocytes # (A) 0.3 k/uL (0-1.0); Monocytes % (A) 4 %; Neutrophils # (A) 3.5 k/uL (1.3-7.7); Neutrophils % (A) 48 %; Platelet Count 257 k/uL (150-450); RBC 4.31 m/uL (4.30-5.90); RDW 12.4 % (11.5-15.5); WBC 7.3 k/uL (3.8-10.6)
--- NOTE | 2021-06-01 04:01 | XR ---
EXAMINATION TYPE: XR ankle complete LT DATE OF EXAM: 06/01/2021 COMPARISON: NONE HISTORY: Pain TECHNIQUE: 3 views FINDINGS: Ankle mortise is anatomic. I see no fracture nor dislocation. Joint spaces are normal. IMPRESSION: Negative left ankle exam. No fracture.
--- NOTE | 2021-06-01 04:02 | CT ---
EXAMINATION TYPE: CT brain wo con DATE OF EXAM: 06/01/2021 COMPARISON: None HISTORY: AMS CT DLP: 1174.4 mGycm Automated exposure control for dose reduction was used. Ventricles have normal size. There is no mass effect nor midline shift. There is no sign of intracran ial hemorrhage. Calvarium is intact. There is mucosal thickening in the paranasal sinuses. There is p revious surgery on the medial wall of the maxillary sinuses. Sella turcica appears normal. IMPRESSION: Negative CT scan of the brain. Pansinusitis.
[2021-06-01 04:14] LABS: Alcohol 204 mg/dL
[2021-06-01 04:24] VITALS: BP 104/70; PULSE 89
== END 2021-06-01 04:47 | disposition home or self-care (01) ==
LOC: EC 02:53
DX: F10.129 Alcohol abuse with intoxication, unspecified (principal); J45.909 Unspecified asthma, uncomplicated; Z88.0 Allergy status to penicillin; Z88.1 Allergy status to other antibiotic agents; Z88.2 Allergy status to sulfonamides; Y90.7 Blood alcohol level of 200-239 mg/100 ml
CPT/HCPCS: 70450; 71045; 80053; 80143; 80179; 80320; 82550; 83690; 84484; 85025; 93005; 96360; 99285

== ENCOUNTER 2024-05-18 18:00 | Inpatient (IN) | payer BC ==
[~2024-05-18 18:00] MED LIST: IPRATROPIUM-ALBUTEROL 3 ML NEB ONE; KETOROLAC 15 MG/ML 1 ML VIAL ONE; METOCLOPRAMIDE 5 MG/ML 2 ML VIAL ONE; ONDANSETRON 4 MG/2 ML VIAL ONE; PANTOPRAZOLE 40 MG/10 ML VIAL ONE; SODIUM CHLORIDE 0.9% 1,000 ML BAG ONE; diphenhydrAMINE 50 MG/ML 1 ML VIAL ONE; fentaNYL (PF) 50 MCG/ML 2 ML AMP ONE; methylPREDNISolone SOD SUCCI 125 MG/2 ML VIAL ONE
[2024-05-18] MEDS ORDERED: DEXAMETHASONE SOD PHOSPHATE 10 MG/ML 1 ML VIAL ONE (18:05)
[2024-05-20] MEDS ORDERED: MORPHINE SULFATE 2 MG/ML SYRINGE IVP PRN
[2024-05-20] MEDS ORDERED: MORPHINE SULFATE 4 MG/ML SYRINGE IVP PRN
[2024-05-20] MEDS ORDERED: NALOXONE 0.4 MG/ML 1 ML VIAL IVP PRN
[2024-05-20] MEDS ORDERED: BISMUTH SUBSALICYLATE 4,192 MG/240 ML BOTTLE PO PRN
[2024-05-20] MEDS ORDERED: IPRATROPIUM-ALBUTEROL 3 ML NEB INHALATION PRN
[2024-05-20] MEDS: FAMOTIDINE 20 MG TAB PO SCH (03:01)
[2024-05-20 03:13] LABS: African American GFR (CKD) >90 (>60 ml/min/1.73 sqM); Anion Gap 6 mmol/L; Blood Urea Nitrogen 12 mg/dL (9-20); Carbon Dioxide 21 mmol/L (22-30); Chloride 108 mmol/L (98-107); Glucose 122 mg/dL (74-99); Magnesium 2.1 mg/dL (1.6-2.3); Non-African American GFR(CKD) >90 (>60 ml/min/1.73 sqM); Phosphorus 3.6 mg/dL (2.5-4.5); Potassium 4.3 mmol/L (3.5-5.1); Sodium 135 mmol/L (137-145)
[2024-05-20 03:55] LABS: Basophils % (A) 0 %; Eosinophils # (A) 0.1 k/uL (0-0.7); Eosinophils % (A) 1 %; HCT 40.8 % (39.0-53.0); HGB 13.7 gm/dL (13.0-17.5); Lymphocytes # (A) 1.1 k/uL (1.0-4.8); Lymphocytes % (A) 11 %; MCH 34.3 pg (25.0-35.0); MCHC 33.6 g/dL (31.0-37.0); MCV 102.1 fL (80.0-100.0); Mean Platelet Volume 8.3; Monocytes # (A) 0.7 k/uL (0-1.0); Monocytes % (A) 6 %; Neutrophils # (A) 8.2 k/uL (1.3-7.7); Neutrophils % (A) 81 %; Platelet Count 270 k/uL (150-450); RBC 3.99 m/uL (4.30-5.90); RDW 11.9 % (11.5-15.5); WBC 10.2 k/uL (3.8-10.6)
[2024-05-20] MEDS: SODIUM CHLORIDE 0.9% 1,000 ML IV SCH (06:28)
--- NOTE | 2024-05-20 08:17 | P.GSCN ---
History of Present Illness Consult date: 05/20/24 Reason for Consult: Colitis History of present illness: This is a 48-year-old male who is seen in the ICU is [facility]. Patient was admitted to hospital complains of some abdominal pain and nausea. His recent CAT scan shows some evidence of bowel wall inflammation and possible esophagitis. 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 History of Any Multi-Drug Resistant Organisms: None Reported Past Surgical History: Orthopedic Surgery Additional Past Surgical History / Comment(s): ARTHROSCOPY RIGHT KNEE, SINUS SURGERY X3. Past Anesthesia/Blood Transfusion Reactions: No Reported Reaction Past Psychological History: No Psychological Hx Reported Past Alcohol Use History: Occasional Past Drug Use History: None Reported - Past Family History Father Family Medical History: Cancer Additional Family Medical History / Comment(s): BRAIN & LUNG CA Medications and Allergies Home Medications Medication Instructions Recorded Confirmed Type Fluticasone Propion/Salmeterol 1 puff INHALATION RT-DAILY PRN 11/05/18 08/21/19 History [Advair 500-50 Diskus] diphenhydrAMINE [Benadryl] 50 mg PO DAILY 11/05/18 08/21/19 History Azithromycin [Zithromax Z-pack (6 0 mg PO DIRECTED #1 pack 08/21/19 Rx tabs)] Ibuprofen [Motrin] 600 mg PO Q8HR PRN #30 tab 08/21/19 Rx Magnesium 200 mg PO DAILY 08/21/19 08/21/19 History Multivitamins, Thera [Multivitamin 1 tab PO DAILY 08/21/19 08/21/19 History (formulary)] predniSONE 50 mg PO DAILY #5 tab 08/21/19 Rx Allergies Allergy/AdvReac Type Severity Reaction Status Date / Time sulfamethoxazole Allergy Unknown Verified 06/01/21 03:03 [From Bactrim] trimethoprim [From Bactrim] Allergy Unknown Verified 06/01/21 03:03 NSAIDS (Non-Steroidal AdvReac Unknown Verified 05/19/24 11:07 Anti-Inflamma ondansetron [From Zofran] AdvReac Unknown Verified 05/19/24 11:07 pantoprazole [From Protonix] AdvReac Unknown Verified 05/19/24 11:07 Penicillins AdvReac Unknown STATES Verified 06/01/21 03:03 [employer] DO NOT WORK FOR HIM. Surgical - Exam Vital Signs Pulse Resp BP Pulse Ox 87 21 162/110 97 05/19/24 09:30 05/19/24 09:30 05/19/24 09:30 05/19/24 09:30 - General well developed, no distress - Eyes PERRL - ENT normal pinna - Neck no masses - Respiratory normal expansion - Cardiovascular Rhythm: regular - Abdomen Abdomen: soft, non tender Results - Labs 05/20/24 01:45 05/20/24 01:38 Abnormal Lab Results - Last 24 Hours (Table) 05/20/24 05/20/24 Range/Units 01:38 01:45 RBC 3.99 L (4.30-5.90) m/uL MCV 102.1 H (80.0-100.0) fL Neutrophils # 8.2 H (1.3-7.7) k/uL Sodium 135 L (137-145) mmol/L Chloride 108 H (98-107) mmol/L Carbon Dioxide 21 L (22-30) mmol/L Glucose 122 H (74-99) mg/dL Diabetes panel 05/20/24 Range/Units 01:38 Sodium 135 L (137-145) mmol/L Potassium 4.3 (3.5-5.1) mmol/L Chloride 108 H (98-107) mmol/L Carbon Dioxide 21 L (22-30) mmol/L BUN 12 (9-20) mg/dL Creatinine 0.81 (0.66-1.25) mg/dL Glucose 122 H (74-99) mg/dL Calcium 9.0 (8.4-10.2) mg/dL Calcium panel 05/20/24 Range/Units 01:38 Calcium 9.0 (8.4-10.2) mg/dL Phosphorus 3.6 (2.5-4.5) mg/dL Pituitary panel 05/20/24 Range/Units 01:38 Sodium 135 L (137-145) mmol/L Potassium 4.3 (3.5-5.1) mmol/L Chloride 108 H (98-107) mmol/L Carbon Dioxide 21 L (22-30) mmol/L BUN 12 (9-20) mg/dL Creatinine 0.81 (0.66-1.25) mg/dL Glucose 122 H (74-99) mg/dL Calcium 9.0 (8.4-10.2) mg/dL Adrenal panel 05/20/24 Range/Units 01:38 Sodium 135 L (137-145) mmol/L Potassium 4.3 (3.5-5.1) mmol/L Chloride 108 H (98-107) mmol/L Carbon Dioxide 21 L (22-30) mmol/L BUN 12 (9-20) mg/dL Creatinine 0.81 (0.66-1.25) mg/dL Glucose 122 H (74-99) mg/dL Calcium 9.0 (8.4-10.2) mg/dL Assessment and Plan Assessment: Probable colitis and esophagitis. Patient is stable for discharge. Apparently he is being discharged home today. He will follow-up in the office next week to be scheduled for EGD and colonoscopy.
[2024-05-20] MEDS: IPRATROPIUM-ALBUTEROL 3 ML NEB INHALATION SCH (09:09)
[2024-05-20] MEDS: SYMBICORT 160-4.5 MCG INHALER INHALATION SCH (09:09)
--- NOTE | 2024-05-20 11:09 | P.PN ---
Subjective Progress Note Date: 05/20/24 Principal diagnosis: Acute allergic reaction, most likely secondary to Toradol. Acute colitis This is a 48-year-old white male whom I saw yesterday in consultation, patient was admitted with acute allergic reaction most likely secondary to Toradol, possible acute vasovagal episode, symptoms of chronic abdominal pain with colitis allergic rhinitis and sinusitis, and history of mild intermittent asthma. Patient was seen in the ICU, and I recommended asthma medications in the form of albuterol and Symbicort, I discontinued his Decadron, I also recommended GI/general surgery consultation for his colitis symptoms. Patient was today, he is doing extremely well, asymptomatic, he was seen by surgery and cleared him for discharge. Pulmonary elizabeth, he has no symptoms no cough no wheezing no shortness of breath, and I am also clearing him for discharge and the patient to resume his asthma medications at home and to follow-up with his immunopathologist on outpatient basis. Objective - Vital Signs Vital signs: Vital Signs Temp 98.1 F 05/20/24 04:00 Pulse 73 05/20/24 09:27 Resp 18 05/20/24 08:00 BP 143/81 05/20/24 08:00 Pulse Ox 97 05/20/24 09:15 FiO2 Intake & Output 05/19/24 05/20/24 05/20/24 18:59 06:59 18:59 Weight 75.75 kg 76.4 kg Other: Voiding Method Urinal Urinal # Voids 0 # Bowel Movements 1 - Exam General: The patient is awake and alert, in no distress, and does not appear acutely ill. Skin: Skin is warm and dry and no rashes or lesions are noted. Eye: Pupils are equal, round and reactive to light, extra-ocular movements are intact; there is normal conjunctiva bilaterally. Ears, nose, mouth and throat: There are moist mucous membranes and no oral lesions. Neck: The neck is supple, there is no tenderness or JVD. Cardiovascular: There is a regular rate and rhythm. No murmur, rub or gallop is appreciated. Respiratory: Clear bilaterally no crackles rhonchi or wheezes Gastrointestinal: Soft, non-distended, non-tender abdomen without masses or organomegaly noted. There is no rebound or guarding present. Bowel sounds are unremarkable. Back: There is no tenderness to palpation in the midline. There is no obvious deformity. Musculoskeletal: Normal ROM, no tenderness, There is no pedal edema. There is no calf tenderness or swelling. No cords were appreciated. Neurological: CN II-XII intact, Cranial nerves III through XII are intact. There are no obvious motor or sensory deficits. Coordination appears grossly intact. Speech is normal. Psychiatric: Cooperative, appropriate mood & affect, normal judgment. - Labs CBC & Chem 7: 05/20/24 01:45 05/20/24 01:38 Labs: Abnormal Lab Results - Last 24 Hours (Table) 05/20/24 05/20/24 Range/Units 01:38 01:45 RBC 3.99 L (4.30-5.90) m/uL MCV 102.1 H (80.0-100.0) fL Neutrophils # 8.2 H (1.3-7.7) k/uL Sodium 135 L (137-145) mmol/L Chloride 108 H (98-107) mmol/L Carbon Dioxide 21 L (22-30) mmol/L Glucose 122 H (74-99) mg/dL Assessment and Plan Assessment: Impression: Acute vasovagal episode Acute allergic reaction most likely secondary to Toradol Abdominal pain secondary to colitis Allergic rhinitis and history of chronic sinusitis History of mild intermittent asthma Recommendation: Continue present treatment plan including asthma medications/albuterol and Symbicort Patient was cleared for discharge by surgery I will also cleared the patient for discharge and follow-up on outpatient basis. Labs today were all reviewed they seem to be relatively unremarkable including CBC and basic metabolic profile Patient to avoid taking Toradol again. Time with Patient: Less than 30
--- NOTE | 2024-05-20 11:14 | P.PN ---
Subjective This is a pleasant 48 years old male who presents with possible vasovagal reaction and allergic reaction to Toradol. He was admitted to the ICU and monitored and this morning is clinically stable Patient still have GI symptoms. He was able to tolerate diet today but some discomfort in his stomach area. Also he has about 5/10 periumbilical abdominal pain and mild tenderness. He has frequent bowel movements which are formed light brown with no fresh blood about 5 yesterday. No chest pain or dyspnea. No headache dizziness weakness numbness. No urinary symptoms However CT of the abdomen showing segmental inflammatory changes of the small intestine of the colon. Also there is distal thickening of the esophagus. Patient also has sclerotic changes of the right iliac bone. PSA correlation is indicated. Patient informed with possibility of prostate cancer and he verbalized understanding acceptance with the management plan to see a urologist. Patient is hemodynamically stable. CBC and BMP reviewed unremarkable Review of systems CONSTITUTIONAL: No fever, no malaise, no fatigue. HEENT: No recent visual problems or hearing problems. Denied any sore throat. CARDIOVASCULAR: No orthopnea, PND, no palpitations, no syncope. PULMONARY: No shortness of breath, no cough, no hemoptysis. GASTROINTESTINAL: No diarrhea, no nausea, no vomiting, no abdominal pain. Normoactive bowel sounds. NEUROLOGICAL: No headaches, no weakness, no numbness. HEMATOLOGICAL: Denies any bleeding or petechiae. GENITOURINARY: Denies any burning micturition, frequency, or urgency. MUSCULOSKELETAL/RHEUMATOLOGICAL: Denies any joint pain, swelling, or any muscle pain. ENDOCRINE: Denies any polyuria or polydipsia. Objective - Vital Signs Vital signs: Vital Signs Temp 98.1 F 05/20/24 04:00 Pulse 73 05/20/24 09:27 Resp 18 05/20/24 08:00 BP 143/81 05/20/24 08:00 Pulse Ox 97 05/20/24 09:15 FiO2 Intake & Output 05/19/24 05/20/24 05/20/24 18:59 06:59 18:59 Weight 75.75 kg 76.4 kg Other: Voiding Method Urinal Urinal # Voids 0 # Bowel Movements 1 - Exam GENERAL: The patient is alert and oriented x3, not in any acute distress. Well developed, well nourished. HEENT: Pupils are round and equally reacting to light. EOMI. No scleral icterus. No conjunctival pallor. Normocephalic, atraumatic. No pharyngeal erythema. No thyromegaly. CARDIOVASCULAR: S1 and S2 present. No murmurs, rubs, or gallops. PULMONARY: Chest is clear to auscultation, no wheezing , no crackles. ABDOMEN: Soft, nontender, nondistended, normoactive bowel sounds. No palpable organomegaly. MUSCULOSKELETAL: No joint swelling or deformity. EXTREMITIES: No cyanosis, clubbing, or pedal edema. NEUROLOGICAL: Gross neurological examination did not reveal any focal deficits. SKIN: No rashes. no petechiae. - Labs CBC & Chem 7: 05/20/24 01:45 05/20/24 01:38 Labs: Abnormal Lab Results - Last 24 Hours (Table) 05/20/24 05/20/24 Range/Units 01:38 01:45 RBC 3.99 L (4.30-5.90) m/uL MCV 102.1 H (80.0-100.0) fL Neutrophils # 8.2 H (1.3-7.7) k/uL Sodium 135 L (137-145) mmol/L Chloride 108 H (98-107) mmol/L Carbon Dioxide 21 L (22-30) mmol/L Glucose 122 H (74-99) mg/dL Assessment and Plan Assessment: Segmental inflammatory changes of the small and large intestine. Rule out enterocolitis. Rule out Crohn's disease. Distal thickened esophagus suspicious for esophagitis versus tumor. Direct visualization is recommended and patient agree thickened sclerotic focus of the right iliac bone. Check PSA and prostate tumor Allergic reaction to Toradol, avoid Toradol patient informed Vasovagal syncope. Currently improved Chronic pancreatitis, asymptomatic, no symptoms Plan: Patient agrees to stay in the hospital and continue evaluation Surgery team recommended EGD/colonoscopy Will check inflammatory markers CRP and ESR urology consult pulmonary team are on the case as well We will check PSA. Keep the patient n.p.o. after midnight. GI and DVT prophylaxis
[2024-05-20] MEDS: PEG 3350 (236 GM/BTL) + LYTES 4,000 ML BOTTLE PO ONE (13:40)
[2024-05-20] MEDS: FAMOTIDINE 20 MG/2 ML VIAL IV SCH (20:44)
[2024-05-20 20:50] VITALS: RESP 18
[2024-05-21 06:03] LABS: Basophils % (A) 0 %; Eosinophils # (A) 0.6 k/uL (0-0.7); Eosinophils % (A) 7 %; HCT 40.9 % (39.0-53.0); HGB 13.6 gm/dL (13.0-17.5); Lymphocytes # (A) 2.3 k/uL (1.0-4.8); Lymphocytes % (A) 27 %; MCHC 33.3 g/dL (31.0-37.0); Mean Platelet Volume 7.9; Monocytes # (A) 0.5 k/uL (0-1.0); Monocytes % (A) 5 %; Neutrophils # (A) 5.1 k/uL (1.3-7.7); Neutrophils % (A) 59 %; Platelet Count 231 k/uL (150-450); RBC 4.01 m/uL (4.30-5.90); RDW 12.4 % (11.5-15.5); WBC 8.5 k/uL (3.8-10.6)
[2024-05-21 06:32] LABS: African American GFR (CKD) >90 (>60 ml/min/1.73 sqM); Anion Gap 5 mmol/L; Blood Urea Nitrogen 12 mg/dL (9-20); Calcium 8.6 mg/dL (8.4-10.2); Carbon Dioxide 26 mmol/L (22-30); Chloride 105 mmol/L (98-107); Glucose 100 mg/dL (74-99); Non-African American GFR(CKD) >90 (>60 ml/min/1.73 sqM); Potassium 3.7 mmol/L (3.5-5.1); Sodium 136 mmol/L (137-145)
--- NOTE | 2024-05-21 07:47 | XR ---
EXAMINATION TYPE: XR chest 1V DATE OF EXAM: 05/21/2024 COMPARISON: 06/01/2021 and 05/19/2024 HISTORY: 48-year-old male allergic reaction TECHNIQUE: Single frontal view of the chest is obtained. FINDINGS: There is no focal air space opacity, pleural effusion, or pneumothorax seen. The cardiac silhouette size is within normal limits. The osseous structures are intact. IMPRESSION: Stable exam without acute process.
[2024-05-21 08:19] VITALS: BP 142/82; TEMP 98.2
[2024-05-21] MEDS: IPRATROPIUM-ALBUTEROL 3 ML NEB ONE ×5 (11:53→11:54)
[2024-05-21] MEDS: SYMBICORT 80-4.5 MCG INHALER INHALATION ONE (11:54)
[2024-05-21] MEDS: ALBUTEROL NEBULIZED 2.5 MG/3 ML INHALATION ONE (11:55)
--- NOTE | 2024-05-21 12:01 | P.PN ---
Subjective Progress Note Date: 05/21/24 This is a pleasant 48 years old male who presents with possible vasovagal reaction and allergic reaction to Toradol. He was admitted to the ICU and monitored and this morning is clinically stable Patient still have GI symptoms. He was able to tolerate diet today but some discomfort in his stomach area. Also he has about 5/10 periumbilical abdominal pain and mild tenderness. He has frequent bowel movements which are formed light brown with no fresh blood about 5 yesterday. No chest pain or dyspnea. No headache dizziness weakness numbness. No urinary symptoms However CT of the abdomen showing segmental inflammatory changes of the small intestine of the colon. Also there is distal thickening of the esophagus. Patient also has sclerotic changes of the right iliac bone. PSA correlation is indicated. Patient informed with possibility of prostate cancer and he verbalized understanding acceptance with the management plan to see a urologist. Patient is hemodynamically stable. CBC and BMP reviewed unremarkable 05/21. Patient seen and examined. Currently n.p.o., going for EGD and colonosco py today states abdominal pain has improved REVIEW OF SYSTEMS: CONSTITUTIONAL: No fever, no malaise,. CARDIOVASCULAR: No chest pain, no palpitations, no syncope. PULMONARY: No shortness of breath, no cough, GASTROINTESTINAL: No diarrhea, no nausea, no vomiting, no abdominal pain. NEUROLOGICAL: No headaches, no weakness, PHYSICAL EXAMINATION: GENERAL: The patient is alert and oriented x3, not in any acute distress. Well developed, well nourished. HEENT: Pupils are round and equally reacting to light. EOMI. No scleral icterus. No conjunctival pallor. Normocephalic, atraumatic. No pharyngeal erythema. No thyromegaly. CARDIOVASCULAR: S1 and S2 present. No murmurs, rubs, or gallops. PULMONARY: Chest is clear to auscultation, no wheezing or crackles. ABDOMEN: Soft, nontender, nondistended, normoactive bowel sounds. No palpable organomegaly. MUSCULOSKELETAL: No joint swelling or deformity. EXTREMITIES: No cyanosis, clubbing, or pedal edema. NEUROLOGICAL: Gross neurological examination did not reveal any focal deficits. SKIN: No rashes. Assessment and plan Segmental inflammatory changes of the small and large intestine. Rule out enterocolitis. Rule out Crohn's disease. Distal thickened esophagus suspicious for esophagitis versus tumor. Direct visualization is recommended and patient agree thickened sclerotic focus of the right iliac bone. Check PSA and prostate tumor Allergic reaction to Toradol, avoid Toradol patient informed Vasovagal syncope. Chronic pancreatitis, Monitor vital signs Monitor CBC Monitor CMP Continue antiemetic Continue pain management General Surgery planning EGD colonoscopy today Pulmonary following Labs and medication were reviewed.. Continue same treatment. Continue with symptomatic treatment. Resume home medication. Monitor labs and vitals. DVT and GI prophylaxis. Further recommendations as per clinical course of the oneyda iniguez Dictation was produced using [employer] dictation software. please excuse any grammatical, word or spelling errors. Objective - Vital Signs Vital signs: Vital Signs Temp 98.2 F 05/21/24 08:00 Pulse 80 05/21/24 11:58 Resp 18 05/21/24 08:00 BP 142/82 05/21/24 08:00 Pulse Ox 93 L 05/21/24 08:37 FiO2 Intake & Output 05/20/24 05/21/24 05/21/24 18:59 06:59 18:59 Output Total 2 Balance -2 Output: Urine 2 Other: Voiding Method Urinal Urinal # Bowel Movements 3 - Labs CBC & Chem 7: 05/21/24 05:32 05/21/24 05:32 Labs: Abnormal Lab Results - Last 24 Hours (Table) 05/20/24 05/21/24 05/21/24 Range/Units 01:38 05:32 05:32 RBC 4.01 L (4.30-5.90) m/uL MCV 102.0 H (80.0-100.0) fL Sodium 136 L (137-145) mmol/L Glucose 100 H (74-99) mg/dL C-Reactive Protein 2.3 H (<1.0) mg/dL
[2024-05-21] MEDS ORDERED: LIDOCAINE 1% INJ 10MG/ML (20 ML MDV) ONE (12:08)
[2024-05-21] MEDS ORDERED: PROPOFOL 10 MG/ML 20 ML VIAL IV ONE (12:08)
[2024-05-21 12:09] VITALS: PULSE 80
--- NOTE | 2024-05-21 12:11 | P.PN ---
Subjective Progress Note Date: 05/21/24 CHIEF COMPLAINT: abdominal pain HISTORY OF PRESENT ILLNESS: Patient admitted with abdominal pain and nausea. Patient scheduled for EGD and colonoscopy today. He completed the bowel prep. Vital stable. WBC 8.5 Hgb 13.6. PHYSICAL EXAM: VITAL SIGNS: Reviewed. GENERAL: no acute distress. ABDOMEN: Soft. Nondistended. NEUROLOGIC: Alert and oriented. Cranial nerves II through XII grossly intact. ASSESSMENT: 1. Abdominal pain and nausea 2. Possible colitis 3. Possible esophagitis PLAN: -Patient scheduled for EGD and colonoscopy today with Dr. Long Physician Principal Consulting Engineer note has been reviewed by physician. Signing provider agrees with the documented findings, assessment, and plan of care. Objective - Vital Signs Vital signs: Vital Signs Temp 98.2 F 05/21/24 08:00 Pulse 88 05/21/24 08:49 Resp 18 05/21/24 08:00 BP 142/82 05/21/24 08:00 Pulse Ox 93 L 05/21/24 08:37 FiO2 Intake & Output 05/20/24 05/21/24 05/21/24 18:59 06:59 18:59 Output Total 2 Balance -2 Output: Urine 2 Other: Voiding Method Urinal Urinal # Bowel Movements 3 - Labs CBC & Chem 7: 05/21/24 05:32 05/21/24 05:32 Labs: Abnormal Lab Results - Last 24 Hours (Table) 05/20/24 05/21/24 05/21/24 Range/Units 01:38 05:32 05:32 RBC 4.01 L (4.30-5.90) m/uL MCV 102.0 H (80.0-100.0) fL Sodium 136 L (137-145) mmol/L Glucose 100 H (74-99) mg/dL C-Reactive Protein 2.3 H (<1.0) mg/dL
[2024-05-21] MEDS: LACTATED RINGERS 1,000 ML IV ONE (12:12)
--- NOTE | 2024-05-21 12:32 | P.OP ---
Date of Procedure: 05/21/24 Preoperative Diagnosis: Colitis Gerd Postoperative Diagnosis: Gastritis Mild e duodenitis Procedure(s) Performed: EGD Colonoscopy Anesthesia: MAC Surgeon: Noam Long Pathology: other (Antrum, esophagus) Condition: stable Disposition: PACU Description of Procedure: The patient was placed on the endoscopy table in a lateral position. He received IV fluids. The gas was placed oropharynx passing esophagus and the stomach. The scope was in place through the pylorus. The first and second portion of the duodenum appeared n minimally inflamed. A biopsy performed. The scope was then brought back to the antrum this appears mild inflamed. A biopsy performed. The scope was then retroflexed remainder the stomach appeared normal. The GE junction was at 40 cm. The distal esophagus appeared flan. The proximal esophagus were normal. Scope withdrawn patient. Next digital rectal exams performed. This revealed no abnormalities. The flexible colonoscope was then placed patient anus and passed throughout the entire colon. The ileocecal valve was visualized. The cecum, ascending and transverse colon appeared normal. In the descending and sigmoid colon there appeared to be evidence of colitis. The random colon biopsy of the left colon was performed. Scope was withdrawn and there was decreasing inflammation in the sigmoid colon. Scope was back the rectum this. No previous withdrawal from patient.
[2024-05-21] MEDS: FAMOTIDINE 20 MG/2 ML VIAL ONE ×2 (14:44)
[2024-05-21] MEDS: FAMOTIDINE 20 MG TAB ONE ×2 (14:44→15:27)
--- NOTE | 2024-06-06 07:02 | CT ---
Patient: Christopher Gil Ordering Physician: Unknown, Unknown ID: [id number] Phone, Pager: Phone: N/A Pager: N/A : 1975 Age/Gender: 48Y, M Primary Location: N/A Procedure: CTA THOR/ABD AORTA Study Date: 05/18/2024 4:34:00 PM EXAMINATION TYPE: CT angio thoracic/abd/pelvis aorta, without and with contrast DATE OF EXAM: 05/18/2024 COMPARISON: None HISTORY: 48-year-old male abdominal pain, weakness, shortness of breath TECHNIQUE: Contiguous axial scanning of the chest, abdomen, and pelvis performed without and with IV Contrast, patient injected with 100 mL of Isovue 370. Coronal and sagittal reconstructions performed. 3-D reconstructions generated on a dedicated workstation. CT DLP: 1343.2 mGycm Automated exposure control for dose reduction was used. FINDINGS: Chest: The heart is normal size without pericardial effusion. Ectatic aortic root at 3.7 cm. In metatarsal vessel branching anatomy. No evidence for aortic dissect ion or acute intramural hematoma. Prominent right hilar lymph node measuring 1.2 cm. Left hilar lymph node measuring 1.1 cm. Otherwise, no thoracic lymphadenopathy by CT size criteria. Satisfactory opacification of pulmonary arterial system. No large central pulmonary embolus is seen. Mild diffuse bronchial wall thickening. Minimal emphysematous change. Minimal biapical pleuroparenchy mal scarring. No consolidation or pleural effusion. ABDOMEN: There is mild to moderate circumferential wall thickening distal esophagus. Noncontrast and early arterial phase imaging liver, gallbladder, adrenal glands, kidneys, spleen with in normal limits. No nephrolithiasis or hydronephrosis. Prominent calcifications throughout the pancreatic head and neck. There is some dilatation of the gianna n pancreatic duct in these regions measuring up to 8 mm. No further upstream dilatation of the pancre atic duct is seen. Mildly thickened small bowel loops in the pelvis. Normal appendix. Segmental circumferential thickeni ng throughout the colon. There is some left-sided colonic diverticulosis but no discrete inflammation centered along diverticular change. No free air. PELVIS: Trace pelvic free fluid noted, particularly adjacent to some thickened small bowel loops. Bladder is collapsed. Pelvic phleboliths. Prostate gland mildly enlarged at 4.4 cm wide. No pelvic lymphadenopat hy. BONES: Sclerotic focus within the right iliac bone measuring 8 mm probably a bone island. Mild degenerative disc disease midthoracic spine. No osseous destructive process. IMPRESSION: 1. NO EVIDENCE FOR AORTIC DISSECTION OR ANEURYSM. 2. CIRCUMFERENTIAL WALL THICKENING OF SMALL BOWEL LOOPS IN THE PELVIS WITH ADJACENT MILD INTERLOOP FR EE FLUID AND SEGMENTAL INFLAMMATORY THICKENING THROUGHOUT THE COLON. CORRELATE FOR A NONSPECIFIC ENTE ROCOLITIS. 3. MILD TO MODERATE CIRCUMFERENTIAL WALL THICKENING DISTAL ESOPHAGUS COULD REFLECT A CONCURRENT DISTA L ESOPHAGITIS. DIRECT VISUALIZATION CLINICALLY INDICATED. 4. THERE IS LEFT-SIDED COLONIC DIVERTICULOSIS BUT NO DISCRETE INFLAMMATION CENTERED OVER ANY DIVERTIC RACHELLE. 5. CHANGES OF CHRONIC PANCREATITIS INVOLVING THE PANCREATIC HEAD AND NECK. 6. COPD WITH MILD EMPHYSEMA. HILAR LYMPH NODES MEASURING UP TO 1.2 CM LIKELY REACTIVE/POST INFLAMMATO RY. CONSIDER FOLLOW-UP IN 3-6 MONTHS TO ENSURE STABILITY/RESOLUTION. 7. SCLEROTIC FOCUS WITHIN THE RIGHT ILIAC BONE LIKELY A BONE ISLAND. CORRELATE WITH PSA VALUES.
--- NOTE | 2024-06-11 09:17 | XR ---
Patient: Christopher Gil Ordering Physician: Unknown, Unknown ID: [id number] Phone, Pager: Phone: N/A Pager: N/A : 1975 Age/Gender: 48Y, M Primary Location: N/A Procedure: xr chest 1v Study Date: 05/18/2024 4:11:00 PM EXAMINATION TYPE: XR chest 1V DATE OF EXAM: 05/18/2024 COMPARISON: NONE HISTORY: 48-year-old male complaining of abdominal pain, constipation for 10 days, increased distress since arrival to . TECHNIQUE: Single frontal view of the chest is obtained. FINDINGS: Heart normal size. Aorta and pulmonary vasculature within normal limits. Hazy peripheral d ensities relating to overlying soft tissue. No consolidation or pleural effusion. IMPRESSION: No acute cardiopulmonary process.
--- NOTE | 2024-06-13 11:57 | XR ---
Patient: Christopher Gil Ordering Physician: Unknown, Unknown ID: [id number] Phone, Pager: Phone: N/A Pager: N/A : 1975 Age/Gender: 48Y, M Primary Location: N/A Procedure: CXR1V Study Date: 05/19/2024 5:33:40 AM EXAMINATION TYPE: XR chest 1V DATE OF EXAM: 05/19/2024 8:54 AM CLINICAL INDICATION: Shortness of breath COMPARISON: 05/18/2024 TECHNIQUE: XR chest 1V Frontal view of the chest. FINDINGS: Lungs/Pleura: There is no evidence of pleural effusion, focal consolidation, or pneumothorax. Pulmonary vascularity: Unremarkable. Heart/mediastinum: Cardiomediastinal silhouette is unremarkable. Musculoskeletal: No acute osseous pathology. IMPRESSION: No acute cardiopulmonary disease/process.
== END 2024-05-21 15:36 | disposition home or self-care (01) | DRG 392 ==
LOC: UNDOADMIN 18:00 → DISRECOVER 18:00 → 2SICU 18:00 → 4SSUR 05-21 02:25
PROVIDERS: ADMIT Internal Medicine; ATTEND Internal Medicine
PROC: 0DB78ZX Excision of Stomach, Pylorus, Via Natural or Artificial Opening Endoscopic, Diagnostic (ICD-10-PCS; 2024-05-21)
PROC: 0DBG8ZX Excision of Left Large Intestine, Via Natural or Artificial Opening Endoscopic, Diagnostic (ICD-10-PCS; principal; 2024-05-21 07:30)
PROC: 0DB98ZX Excision of Duodenum, Via Natural or Artificial Opening Endoscopic, Diagnostic (ICD-10-PCS; 2024-05-21 07:30)
DX: K52.9 Noninfective gastroenteritis and colitis, unspecified (principal); K86.1 Other chronic pancreatitis; J45.20 Mild intermittent asthma, uncomplicated; K21.00 Gastro-esophageal reflux disease with esophagitis, without bleeding; K29.70 Gastritis, unspecified, without bleeding; I95.9 Hypotension, unspecified; K29.80 Duodenitis without bleeding; J30.9 Allergic rhinitis, unspecified; R55 Syncope and collapse; I25.10 Atherosclerotic heart disease of native coronary artery without angina pectoris; T39.8X5A Adverse effect of other nonopioid analgesics and antipyretics, not elsewhere classified, initial encounter; Z80.1 Family history of malignant neoplasm of trachea, bronchus and lung; Z88.2 Allergy status to sulfonamides; Z88.1 Allergy status to other antibiotic agents; X58.XXXA Exposure to other specified factors, initial encounter; Z88.0 Allergy status to penicillin; Z88.6 Allergy status to analgesic agent
CPT/HCPCS: 43239; 45380; 71045; 71275; 74174; 80048; 83735; 84100; 84153; 85025; 85652; 86140; 86850; 86900; 86901; 88305; 93005; 94640; 94660; 94760; 96361; 96374; 96375; 99285

== ENCOUNTER → 2025-03-13 | Outpatient (CLI) | payer BC ==
[2025-03-13 22:15] LABS: Alternaria alternata IgE <0.10 kU/L; Aspergillus fumagatus IgE <0.10 kU/L; Birch IgE <0.10 kU/L; Cladosporian herbarum IgE <0.10 kU/L; Dermato. farinae IgE 0.73 kU/L; Dog Dander IgE <0.10 kU/L; Elm IgE <0.10 kU/L; Oak IgE <0.10 kU/L; Ragweed,Common IgE <0.10 kU/L
[2025-03-14 13:56] LABS: Bermuda Grass IgE <0.10 kU/L (<0.10); Meadow Fescue IgE <0.10 kU/L (<0.10); Meadow Fescue IgE Class CLASS 0; Meadow Grs (KY blue) IgE <0.10 kU/L (<0.10); Meadow Grs (KY blue) IgE Class CLASS 0; Pecan IgE <0.10 kU/L (<0.10); Pecan IgE Class CLASS 0; Penicillium notatum IgE Class CLASS 0; Sycamore(Mpl.Lf) IgE <0.10 kU/L (<0.10); Sycamore(Mpl.Lf) IgE Class CLASS 0; Timothy Grass IgE <0.10 kU/L (<0.10); Timothy Grass IgE Class CLASS 0; Willow Tree IgE <0.10 kU/L (<0.10); Willow Tree IgE Class CLASS 0
[2025-03-14 13:57] LABS: Beech IgE <0.10 kU/L (<0.10); Beech IgE Class CLASS 0; Cottonwood IgE <0.10 kU/L (<0.10); English Plantain IgE Class CLASS 0; Goldenrod IgE <0.10 kU/L (<0.10); Goldenrod IgE Class CLASS 0; Lamb's Quarter IgE <0.10 kU/L (<0.10); Lamb's Quarter IgE Class CLASS 0; Ragweed, Giant IgE <0.10 kU/L (<0.10); Ragweed, Giant IgE Class CLASS 0; Sheep Sorrel IgE <0.10 kU/L (<0.10); Sheep Sorrel IgE Class CLASS 0
== END | disposition home or self-care (01) ==
LOC: LABWHC1 11:24
PROVIDERS: ATTEND Internal Medicine
DX: J31.0 Chronic rhinitis (principal)
CPT/HCPCS: 36415; 82785; 86003